=== PATIENT | male | born 1995 | race Two or more races ===

== ENCOUNTER 2016-09-12 22:18 | Emergency (ER) | payer MEDICAID ==
[~2016-09-12] VITALS: Ht 172.7 cm; Wt 95.3 kg
[2016-09-12 22:58] VITALS: BP 147/74
--- NOTE | 2016-09-12 22:58 | NUR ---
triaged and sent to [facility] d/t ER saturation to await for MD luong, resp even & unlabored, no acute distress noted.
--- NOTE | 2016-09-13 00:41 | NUR ---
Called to rm. Not in [facility].
--- NOTE | 2016-09-13 01:17 | NUR ---
called, no answer. per admitting, pt left.
== END 2016-09-13 01:18 | disposition left against medical advice (07) ==
LOC: ER 22:22
DX: Z53.21 Procedure and treatment not carried out due to patient leaving prior to being seen by health care provider (principal)
CPT/HCPCS: A4606; Z7610